=== PATIENT | female | born 1930 | race Caucasian/White ===

== ENCOUNTER 2017-11-23 13:31 | Emergency (ER) | payer OTHER ==
[~2017-11-23] VITALS: Ht 152.4 cm; Wt 49.9 kg
[~2017-11-23 13:31] MED LIST: ACETAMINOPHEN325 M1 PO; BIOFREEZE118 ML TOP; BISACODYL SUPP10 MG RECTAL; COLACE 100 MG100 MG PO; COLACE100 MG PO; IRON325 PO; KEPPRA 500 MG500 M1 PO; MAGNESIUM OXID400 MG PO; MOM PO; PEPCID20 MG PO; PLAVIX 75 MG TA75 M1 PO; PRAVACHOL20 MG PO; PROBIOTIC1 EAC1 PO; SENNA PO; SENNA8.6 MG PO; TRAMADOL 50 MG50 MG PO; TYLENOL325 MG PO; UNICOMPLEX M TA1 TA1 PO; VITAMIN B COMP1 EACH PO; VITAMIN B-121000 MCG PO; VITAMIN B-12500 MCG PO; VITAMIN B-6200 M1 PO; VITAMIN C1000 MG PO; VITAMIN D35000 UNI1 PO
[2017-11-23 13:55] LABS: HEMATOCRIT 40.6 % (37.0-47.0); HEMOGLOBIN 13.6 gm/dL (12.0-15.0); MCH 31.3 pg (26.0-34.0); MCHC 33.5 g/dL (28.0-37.0); MCV 93.6 fL (80.0-100.0); RBC 4.33 mil/uL (4.20-5.00); RDW 12.7 % (10.5-14.5); WBC 5.2 thou/uL (4.0-11.0)
[2017-11-23 13:56] LABS: CALCIUM 9.5 mg/dL (8.5-10.1); CREATININE 0.7 mg/dL (0.6-1.0); POTASSIUM 3.4 mmol/L (3.5-5.1)
[2017-11-23 15:19] VITALS: BP 179/72
[2018-02-18] MEDS ORDERED: ACIDOPHILUS1 EACH PO (13:10)
[2018-02-18] MEDS ORDERED: BIOFREEZE118 ML TOP (13:12)
[2018-02-18] MEDS ORDERED: TYLENOL325 MG PO (13:13)
[2018-02-18] MEDS ORDERED: CHOLESTYRAMINE P4 GM PO (14:01)
[2018-02-18] MEDS ORDERED: MILK OF MA2400 MG/10 PO (14:05)
[2018-02-18] MEDS ORDERED: LEXAPRO 10 MG T10 M2 PO (14:07)
[2018-02-18] MEDS ORDERED: LOPERAMIDE 2 MG2 M1 PO (14:08)
[2018-02-18] MEDS ORDERED: RISPERIDONE 00.25 M1 PO (14:09)
[2018-02-18] MEDS ORDERED: RISPERIDONE0.5 MG PO (14:10)
[2018-02-18] MEDS ORDERED: ACETAMINOPHEN-1 EAC1 PO (14:10)
[2018-02-18] MEDS ORDERED: VITAMINC500 PO (14:11)
[2018-02-18] MEDS ORDERED: VIMPAT50 MG PO (14:12)
[2018-02-18] MEDS ORDERED: VITAMIN D-32000 UNIT PO (14:13)
[2018-02-18] MEDS ORDERED: ZYRTEC10 M5 PO (14:13)
[2018-05-05] MEDS ORDERED: NIZORAL120 ML TOP (07:22)
[2018-05-05] MEDS ORDERED: ACIDOPHILUS1 EACH PO (10:08)
[2018-05-05] MEDS ORDERED: MILK OF MA400 MG/5 M PO (10:10)
[2018-05-05] MEDS ORDERED: TYLENOL325 MG PO (10:12)
[2018-05-05] MEDS ORDERED: VITAMIN B-625 MG PO (10:14)
== END 2017-11-23 15:20 | disposition short-term general hospital (02) ==
LOC: ER 13:31
PROVIDERS: Physician Assistant
DX: S06.5X0A Traumatic subdural hemorrhage without loss of consciousness, initial encounter (principal); S16.1XXA Strain of muscle, fascia and tendon at neck level, initial encounter; M19.90 Unspecified osteoarthritis, unspecified site; F03.90 Unspecified dementia, unspecified severity, without behavioral disturbance, psychotic disturbance, mood disturbance, and anxiety; Z90.49 Acquired absence of other specified parts of digestive tract; W01.190A Fall on same level from slipping, tripping and stumbling with subsequent striking against furniture, initial encounter; Y93.89 Activity, other specified; Y92.89 Other specified places as the place of occurrence of the external cause; Y99.8 Other external cause status

== ENCOUNTER 2018-05-10 05:27 | Day surgery (SDC) | payer OTHER ==
[~2018-05-10] VITALS: Ht 152.4 cm; Wt 53.1 kg
--- NOTE | ~2018-05-10 | O ---
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 PREOPERATIVE DIAGNOSIS: Unilateral left upper lid ptosis. POSTOPERATIVE DIAGNOSIS: Unilateral left upper lid ptosis. OPERATION PERFORMED: Unilateral left upper lid ptosis repair. ANESTHESIA: Local anesthesia with IV sedation. COMPLICATIONS: None. INDICATIONS FOR SURGERY: This patient has left upper lid ptosis with superior visual field loss. Visual field testing demonstrates dense superior visual defects. Retesting with the upper lid elevated shows an improvement in visual field loss of over 30% and in excess of 12 degrees. The current procedure is undertaken in order to improve the patient's visual function. Informed consent was obtained to include but not limited to the potential risks for bleeding, scarring, infection, loss of vision, failure to improve the problem, need for further surgery and need for adjustment of lid height. DESCRIPTION OF PROCEDURE: The patient was taken to the operating room, where a left upper lid crease was drawn with a skin marking pen. The incision was then made with Mateusz scissors and dissected down to the orbital septum. Hemostasis was achieved with a monopolar cautery as it was throughout the case. The orbital septum was then entered and the preaponeurotic fat identified. The levator aponeurosis was then disinserted from the anterior surface of the tarsal plate and dissected free in the avascular Orellana's muscle plane. The aponeurosis was then advanced onto the anterior surface of the tarsal plate and reattached with mattress double-arm 6-0 Novafil sutures, adjusting for height and contour. The redundant aponeurosis was then amputated. The upper lid crease was then reformed with interrupted 6-0 chromic sutures. The skin was closed with interrupted 6-0 plain gut suture. The wound was then cleaned and dressed with ophthalmic antibiotic ointment. [address] [address] OPERATIVE REPORT Name: MIGUEL BELLO Room #: [address] [place] [address]..#: [id number] Admission: 05/10/18 Attend Phys: Cedric Booker MD Discharge: Date of : [birth year] Report #: [id number] The patient was then transported to the recovery area, having tolerated the procedure well with no anesthesia or operative complications being noted. By: [id number] Cedric Booker MD /nt
[~2018-05-10 05:27] MED LIST changes: +ACETAMINOPHEN-1 EAC1 PO; +ACIDOPHILUS1 EACH PO; +CHOLESTYRAMINE P4 GM PO; +LEXAPRO 10 MG T10 M2 PO; +LOPERAMIDE 2 MG2 M1 PO; +MILK OF MA2400 MG/10 PO; +MILK OF MA400 MG/5 M PO; +NIZORAL120 ML TOP; +RISPERIDONE 00.25 M1 PO; +RISPERIDONE0.5 MG PO; +VIMPAT50 MG PO; +VITAMIN B-625 MG PO; +VITAMIN D-32000 UNIT PO; +VITAMINC500 PO; +ZYRTEC10 M5 PO
[2018-05-10 12:43] VITALS: BP 133/70
== END 2018-05-10 15:05 | disposition home or self-care (01) ==
LOC: TBA 05:27 → OR 05:27
DX: H02.402 Unspecified ptosis of left eyelid (principal); I21.3 ST elevation (STEMI) myocardial infarction of unspecified site; G40.909 Epilepsy, unspecified, not intractable, without status epilepticus; F32.9 Major depressive disorder, single episode, unspecified; F41.9 Anxiety disorder, unspecified; F03.90 Unspecified dementia, unspecified severity, without behavioral disturbance, psychotic disturbance, mood disturbance, and anxiety; M19.90 Unspecified osteoarthritis, unspecified site; Z86.73 Personal history of transient ischemic attack (TIA), and cerebral infarction without residual deficits; Z90.49 Acquired absence of other specified parts of digestive tract; D64.9 Anemia, unspecified; Z90.710 Acquired absence of both cervix and uterus
CPT/HCPCS: 50010; 50101; 50386; 50398; 51636; 56528; 56531